=== PATIENT | male | born 1965 | race Asian ===

== ENCOUNTER → 2017-05-21 | Outpatient (CLI) | payer MEDICAID | END | disposition home or self-care (01) | LOC: RAD 14:41 | DX: R05 Cough (principal) | CPT/HCPCS: 71020 ==

== ENCOUNTER 2020-01-10 11:23 | Emergency (ER) | payer MEDICAID ==
[~2020-01-10] VITALS: Ht 172.7 cm; Wt 75.0 kg
[2020-01-10 14:37] VITALS: BP 129/82
== END 2020-01-10 15:02 | disposition home or self-care (01) ==
LOC: ER 11:23
DX: N40.1 Benign prostatic hyperplasia with lower urinary tract symptoms (principal); R33.8 Other retention of urine; N39.0 Urinary tract infection, site not specified; R03.0 Elevated blood-pressure reading, without diagnosis of hypertension
CPT/HCPCS: 51702; 99284

== ENCOUNTER 2020-01-11 10:49 | Emergency (ER) | payer MEDICAID ==
[~2020-01-11] VITALS: Ht 175.3 cm; Wt 91.0 kg
[2020-01-11 10:59] VITALS: BP 142/94
== END 2020-01-11 11:10 | disposition left against medical advice (07) ==
LOC: ER 10:49
DX: Z46.6 Encounter for fitting and adjustment of urinary device (principal); Z53.21 Procedure and treatment not carried out due to patient leaving prior to being seen by health care provider

== ENCOUNTER 2020-01-12 12:04 | Emergency (ER) | payer MEDICAID ==
[~2020-01-12] VITALS: Ht 165.1 cm; Wt 75.0 kg
[2020-01-12 12:19] VITALS: BP 151/99
== END 2020-01-12 14:15 | disposition home or self-care (01) ==
LOC: ER 12:04
DX: R33.9 Retention of urine, unspecified (principal)
CPT/HCPCS: 99281; 99283

== ENCOUNTER 2020-01-29 11:37 | Emergency (ER) | payer MEDICAID ==
[~2020-01-29] VITALS: Ht 175.3 cm; Wt 91.0 kg
[2020-01-29 12:33] LABS: CLARITY URINE CLEAR (CLEAR); COLOR URINE YELLOW (YELLOW); KETONES URINE TRACE (NEGATIVE); LEUKOCYTE ESTERASE URINE NEGATIVE (NEGATIVE); NITRITE URINE NEGATIVE (NEGATIVE); OCCULT BLOOD URINE NEGATIVE (NEGATIVE); PH URINE 5.5 (4.5-8.0); PROTEIN URINE TRACE (NEGATIVE); SPECIFIC GRAVITY URINE 1.031 (1.005-1.030)
[2020-01-29 13:12] LABS: BASOPHILS % 0.3 % (0.0-2.0); HEMATOCRIT. 41.5 % (42.0-52.0); HEMOGLOBIN. 14.3 g/dL (14.0-18.0); LYMPHOCYTES % 28.8 % (20.0-50.0); MEAN CORPUSCULAR HEMOGLOBIN 29.2 pg (28.0-32.0); MEAN CORPUSCULAR VOLUME 84.3 fL (80.0-94.0); MEAN PLATELET VOLUME 8.7 fl (7.4-10.4); MONOCYTES % 7.8 % (2.0-8.0); NEUTROPHILS % 61.1 % (40.0-76.0); PLATELET 197 x1000/uL (130-400); RED BLOOD CELL COUNT 4.91 mill/uL (4.7-6.1); RED CELL DISTRIBUTION WIDTH 14.1 % (11.6-14.6)
[2020-01-29 13:13] LABS: CHLORIDE 108 mEq/L (98-107)
[2020-01-29 13:33] VITALS: BP 147/69
== END 2020-01-29 13:34 | disposition home or self-care (01) ==
LOC: ER 11:47
DX: N40.1 Benign prostatic hyperplasia with lower urinary tract symptoms (principal); R33.8 Other retention of urine
CPT/HCPCS: 36415; 80053; 81003; 82962; 85025; 99283